=== PATIENT | female | born 1955 | race Caucasian/White ===

== ENCOUNTER 2021-02-01 00:49 | Observation (INO) | payer MEDICARE, BC ==
[2021-02-01] MEDS ORDERED: Senokot S 8.6-50 MG TAB PO PRN (01:01)
[2021-02-01] MEDS ORDERED: Nitroglycerin 0.4 MG TAB (25 Tab Bottle) SL PRN (01:01)
[2021-02-01] MEDS ORDERED: Calcium Carbonate 500 MG ChewTAB PO PRN (01:01)
[2021-02-01] MEDS ORDERED: Acetaminophen 325 MG TAB PO PRN (01:01)
[2021-02-01] MEDS ORDERED: Ondansetron PF 4 MG/2 ML Vial IVP PRN (01:01)
[2021-02-01 05:34] LABS: Anion Gap 14 mmol/L (10-20); BUN (Urea Nitrogen) 15 mg/dL (9.8-20.1); Calc. Creatinine Clearance 0 mL/min (70-130); Calcium 8.7 mg/dL (7.8-10.44); Carbon Dioxide 23 mmol/L (23-31); Chloride 109 mmol/L (98-107); Glucose 106 mg/dL (80-115); Potassium 4.1 mmol/L (3.5-5.1); Sodium 142 mmol/L (136-145)
[2021-02-01 06:01] VITALS: BMI 31.6
[2021-02-01] MEDS ORDERED: FLU VACC QS2021-22(65YR UP)/PF 240 MCG/0.7 ML SYRINGE IM ONE (06:45)
[2021-02-01] MEDS ORDERED: Metoprolol Tartrate 25 MG TAB PO SCH (09:00)
[2021-02-01] MEDS: Cholecalciferol 1,000 UNITS (25 MCG) TAB PO SCH (09:14)
[2021-02-01] MEDS: Furosemide 40 MG TAB PO SCH (09:14)
[2021-02-01] MEDS: Enoxaparin Sodium 40 MG/0.4 ML SYRINGE SC SCH (09:14)
[2021-02-01] MEDS: Aspirin Chewable 81 MG TAB PO SCH (09:14)
[2021-02-01] MEDS: Lisinopril 5 MG TAB PO SCH ×2 (09:14→09:24)
[2021-02-01] MEDS: Famotidine 20 MG TAB PO SCH ×2 (09:15→21:47)
[2021-02-01] MEDS: HYDROcodone/Acetaminophen 5/325 mg Tablet PO PRN ×2 (09:33→18:05)
[2021-02-01] MEDS ORDERED: Rosuvastatin 20 MG TAB PO SCH (21:00)
[2021-02-02 04:27] LABS: #Basophils 0.1 10x3/uL (0.0-0.2); #Eosinphils 0.2 10x3/uL (0.0-0.5); #Monocytes 0.5 10x3/uL (0.0-1.1); #Neutrophils 4.5 10x3/uL (1.5-8.4); %Basophils 0.6 % (0.0-2.0); %Eosinophils 1.8 % (0.0-6.0); %Lymphocytes 36.4 % (18.0-47.0); %Monocytes 6.5 % (0.0-10.0); %Neutrophils 54.3 % (40.0-75.0); Hemoglobin 12.1 g/dL (12.0-15.5); Mean Corpuscular HGB CONC 33.8 g/dL (32.0-36.0); Mean Corpuscular Hemoglobin 31.2 pg (27.0-33.0); Mean Corpuscular Volume 92.3 fl (81.6-98.3); Mean Platelet Volume 11.3 fl (7.4-10.4); Platelet Count 195 10x3/uL (150-450); RBC Distribution Width 14.3 % (11.5-14.5); Red Blood Cell (RBC) Count 3.88 10x6/uL (3.90-5.03); White Blood Cell (WBC) Count 8.3 10x3/uL (3.5-10.5)
[2021-02-02 04:36] LABS: ALT (SGPT) 16 U/L (8-55); AST (SGOT) 14 U/L (5-34); Albumin 3.8 g/dL (3.4-4.8); Alkaline Phosphatase 69 U/L (40-110); Anion Gap 14 mmol/L (10-20); BUN (Urea Nitrogen) 22 mg/dL (9.8-20.1); Bilirubin, Total 2.2 mg/dL (0.2-1.2); Calc. Creatinine Clearance 74 mL/min (70-130); Calcium 8.8 mg/dL (7.8-10.44); Carbon Dioxide 25 mmol/L (23-31); Cardiac Risk 5.3 (Less than 4.5); Chloride 104 mmol/L (98-107); Cholesterol 165 mg/dl (< 200 Desired); Globulin 2.8 g/dL (2.4-3.5); Glucose 104 mg/dL (80-115); HDL Cholesterol 31 mg/dL (>60 Neg Risk); LDL Cholesterol, Calculated 94 mg/dL; Magnesium 2.1 mg/dL (1.6-2.6); Phosphorus 4.1 mg/dL (2.3-4.7); Potassium 3.9 mmol/L (3.5-5.1); Protein, Total 6.6 g/dL (5.8-8.1); Sodium 139 mmol/L (136-145); Triglycerides 202 mg/dL (Less than 150)
[2021-02-02] MEDS: Furosemide 40 MG TAB PO SCH (06:48)
[2021-02-02 08:53] VITALS: BP 109/49; TEMP 97.7
[2021-02-02] MEDS: Famotidine 20 MG TAB PO SCH (09:36)
[2021-02-02] MEDS: Aspirin Chewable 81 MG TAB PO SCH (09:36)
[2021-02-02] MEDS: Cholecalciferol 1,000 UNITS (25 MCG) TAB PO SCH (09:36)
[2021-02-02] MEDS: Enoxaparin Sodium 40 MG/0.4 ML SYRINGE SC SCH (09:36)
[2021-02-02 12:58] LABS: Hemoglobin A1c 4.9 % (4.0-6.0)
== END 2021-02-02 16:32 | disposition home or self-care (01) ==
LOC: CSHTELE 00:49
PROVIDERS: ADMIT Student in an Organized Health Care Education/Training Program; ATTEND Family Medicine
DX: R07.9 Chest pain, unspecified (principal); E78.5 Hyperlipidemia, unspecified; Q61.3 Polycystic kidney, unspecified; N18.2 Chronic kidney disease, stage 2 (mild); E55.9 Vitamin D deficiency, unspecified; Z87.891 Personal history of nicotine dependence; I51.89 Other ill-defined heart diseases; Z79.899 Other long term (current) drug therapy; Z90.49 Acquired absence of other specified parts of digestive tract; Z90.710 Acquired absence of both cervix and uterus
CPT/HCPCS: 80048; 80061; 83036; 83735; 84100; 84484; 93005; 93306; 94760; 96372; 96374; G0378 ×2; 36415; 80053; 84443; 85025; 93010; J1650; J2405

== ENCOUNTER 2024-10-26 09:39 | Outpatient (CLI) | payer MEDICARE | END 2024-10-26 09:40 | disposition home or self-care (01) | LOC: CSHMAMMO 09:39 | PROVIDERS: ATTEND Specialist | DX: C50.912 Malignant neoplasm of unspecified site of left female breast (principal) | CPT/HCPCS: 96372; A9697 ==

== ENCOUNTER 2024-10-26 11:21 | Outpatient (CLI) | payer MEDICARE ==
[2024-10-26 12:36] LABS: #Basophils 0.04 10x3/uL (0.0-0.2); #Eosinophils 0.08 10x3/uL (0.0-0.5); #Monocytes 0.46 10x3/uL (0.0-1.1); #Neutrophils 5.41 10x3/uL (1.5-8.4); %Basophils 0.5 % (0.0-2.0); %Eosinophils 1.0 % (0.0-6.0); %Lymphocytes 28.5 % (18.0-47.0); %Monocytes 5.5 % (0.0-10.0); %Neutrophils 64.3 % (40.0-75.0); Hematocrit 38.9 % (34.9-44.5); Hemoglobin 13.0 g/dL (12.0-15.5); Mean Corpuscular Hemoglobin 31.1 pg (27.0-33.0); Mean Corpuscular Volume 93.1 fL (81.6-98.3); Platelet Count 238 10x3/uL (150-450); Red Blood Cell (RBC) Count 4.18 10x6/uL (3.90-5.03); White Blood Cell (WBC) Count 8.40 10x3/uL (3.5-10.5)
[2024-10-26 12:54] LABS: Anion Gap 12 mmol/L (10-20); BUN (Urea Nitrogen) 18 mg/dL (9.8-20.1); Calc. Creatinine Clearance 0 mL/min (70-130); Calcium 9.2 mg/dL (7.8-10.44); Carbon Dioxide 23 mmol/L (23-31); Chloride 110 mmol/L (98-107); Glucose 84 mg/dL (80-115); Potassium 4.4 mmol/L (3.5-5.1); Sodium 141 mmol/L (136-145)
== END 2024-10-26 11:22 | disposition home or self-care (01) ==
LOC: CSHLAB 11:21
PROVIDERS: ATTEND Specialist
DX: Z01.818 Encounter for other preprocedural examination (principal); C50.912 Malignant neoplasm of unspecified site of left female breast
CPT/HCPCS: 71046; 80048; 85025; 93005; 93010

== ENCOUNTER 2024-10-29 05:48 | Day surgery (SDC) | payer MEDICARE ==
[2024-10-26 11:33] VITALS: BMI 29.0
[2024-10-29] MEDS ORDERED: Acetaminophen 500 MG TAB ONE (06:52)
[2024-10-29] MEDS ORDERED: Ketorolac Tromethamine 30 MG (1 mL) VIAL ONE (06:52)
[2024-10-29] MEDS ORDERED: Ondansetron PF 4 MG/2 ML Vial ONE (06:59)
[2024-10-29] MEDS ORDERED: PROPOFOL 20 ML ONE (06:59)
[2024-10-29] MEDS ORDERED: Bupivacaine/Epinephrine 0.25% 30 ML VIAL ONE (08:42)
[2024-10-29] MEDS ORDERED: Lidocaine 2% MPF 10 ML AMP (For Epidural Use) ONE (08:42)
[2024-10-29] MEDS ORDERED: CEFAZOLIN 1 GM VIAL ONE ×2 (09:33→09:38)
[2024-10-29] MEDS ORDERED: HYDROcodone/Acetaminophen 5/325 mg Tablet ONE (12:10)
== END 2024-10-29 13:35 | disposition home or self-care (01) ==
LOC: CSHSDC 05:48
PROVIDERS: ATTEND Specialist
PROC: 0HBU0ZZ Excision of Left Breast, Open Approach (ICD-10-PCS; principal; 2024-10-29)
PROC: 07B60ZZ Excision of Left Axillary Lymphatic, Open Approach (ICD-10-PCS; 2024-10-29)
PROC: 0HX5XZZ Transfer Chest Skin, External Approach (ICD-10-PCS; 2024-10-29)
DX: C50.312 Malignant neoplasm of lower-inner quadrant of left female breast (principal); C77.3 Secondary and unspecified malignant neoplasm of axilla and upper limb lymph nodes; E78.5 Hyperlipidemia, unspecified; Z17.0 Estrogen receptor positive status [ER+]; Z17.21 Progesterone receptor positive status; Z17.32 Human epidermal growth factor receptor 2 negative status; Z87.891 Personal history of nicotine dependence; Z90.89 Acquired absence of other organs; Z90.710 Acquired absence of both cervix and uterus; Z90.49 Acquired absence of other specified parts of digestive tract; Z90.5 Acquired absence of kidney; Z91.040 Latex allergy status; Z88.2 Allergy status to sulfonamides; Z88.8 Allergy status to other drugs, medicaments and biological substances; Z79.899 Other long term (current) drug therapy
CPT/HCPCS: 19301; 38525; 38900; 14301; 76098; C1713; J0690; J1100; J1885; J2405; J2704; J3010; 88305; 88307

== ENCOUNTER 2024-11-13 11:23 | Day surgery (SDC) | payer MEDICARE ==
[2024-11-12 11:21] VITALS: BMI 28.5
[2024-11-13] MEDS ORDERED: Acetaminophen 500 MG TAB ONE (12:15)
[2024-11-13] MEDS ORDERED: Ketorolac Tromethamine 30 MG (1 mL) VIAL ONE (12:15)
[2024-11-13] MEDS ORDERED: Bupivacaine/Epinephrine 0.25% 30 ML VIAL ONE (13:55)
[2024-11-13] MEDS ORDERED: PROPOFOL 20 ML ONE (14:14)
[2024-11-13] MEDS ORDERED: CEFAZOLIN 2 GM VIAL ONE (14:18)
[2024-11-13] MEDS ORDERED: Ondansetron PF 4 MG/2 ML Vial ONE (14:44)
== END 2024-11-13 17:50 | disposition home or self-care (01) ==
LOC: CSHSDC 11:23
PROVIDERS: ATTEND Specialist
PROC: 0HBU0ZZ Excision of Left Breast, Open Approach (ICD-10-PCS; principal; 2024-11-13)
DX: C50.312 Malignant neoplasm of lower-inner quadrant of left female breast (principal); E78.5 Hyperlipidemia, unspecified; Z17.0 Estrogen receptor positive status [ER+]; Z17.21 Progesterone receptor positive status; Z17.32 Human epidermal growth factor receptor 2 negative status; Z87.891 Personal history of nicotine dependence; Z90.89 Acquired absence of other organs; Z90.49 Acquired absence of other specified parts of digestive tract; Z91.040 Latex allergy status; Z88.2 Allergy status to sulfonamides; Z88.8 Allergy status to other drugs, medicaments and biological substances; Z79.899 Other long term (current) drug therapy
CPT/HCPCS: 19301; C1713; J1885; J2405; J2704; J3010; 88307